=== PATIENT | male | born 1980 | race Caucasian/White ===

== ENCOUNTER → 2020-06-07 15:17 | Outpatient (CLI) | payer BC, SELFPAY ==
[2020-06-01 07:49] VITALS: BMI 33.0
--- NOTE | 2020-06-07 14:00 | VAS_PTH ---
PATIENT: EMIR DEJESUS LOC: [facility] U#:[id number] AGE/SX: 45/M ROOM: RE06/07/[address]: Dr. Lizandro Cowan MD : 1980 BED: DIS: SPEC #: [id number] RECD: 06/07/20 15:00 STATUS: MARCE RANI #: [id number] HEIDE: 06/07/20 14:[address]: Lizandro Cowan DEPT: SURGICAL PATHOLOGY RECD BY: Jana Powers ENTERED: 06/08/20 06:57 SP TYPE: VAS OTHR DR: Dr. Sd Roy MD Tissues: A - Vas deferens, NOS B - Vas deferens, NOS Procedures: Surgery Specimen Level II HEADER OPERATION: Bilateral partial vasectomy PRE-OP DIAGNOSIS: Sterilization TISSUE SUBMITTED: A - Right vas deferens, B - Left vas deferens MICROSCOPIC DIAGNOSIS A. Right vas deferens, segmental vasectomy: Complete cross-section of vas deferens with no pathologic change. B. Left vas deferens, segmental vasectomy: Complete cross-section of vas deferens with no pathologic change. AM:kristen 06/09/2020 MICROSCOPIC DESCRIPTION Slides are reviewed. GROSS DESCRIPTION A - Received is one container designated right vas deferens. The specimen consists of a tubular segment of barr soft tissue measuring 1.5 cm in length and 0.2 cm in diameter. The entire specimen is submitted in one cassette. It will be sectioned at the time of embedding. B - Received is one container designated left vas deferens. The specimen consists of a tubular segment of barr soft tissue measuring 1.7 cm in length and 0.2 cm in diameter. The entire specimen is submitted in one cassette. It will be sectioned at the time of embedding. / SJ:kristen 06/08/20 TC:4 CPT: 69042 x2
== END ==
PROVIDERS: PCP Family Medicine; Visit Provider Surgery
DX: Z30.2 Encounter for sterilization (principal)
CPT/HCPCS: 88302

== ENCOUNTER → 2020-07-17 12:12 | Outpatient (CLI) | payer BC, SELFPAY ==
[2020-06-01 07:49] VITALS: BMI 33.0
[2020-07-18 12:35] LABS: Semen Analysis Post Vas ABSENT
== END ==
PROVIDERS: PCP Family Medicine; Visit Provider Surgery
DX: Z30.2 Encounter for sterilization (principal)
CPT/HCPCS: 89321

== ENCOUNTER → 2020-08-07 12:37 | Outpatient (CLI) | payer BC, SELFPAY ==
[2020-06-01 07:49] VITALS: BMI 33.0
[2020-08-08 12:21] LABS: Semen Analysis Post Vas ABSENT
== END ==
PROVIDERS: PCP Family Medicine; Visit Provider Surgery
DX: Z30.2 Encounter for sterilization (principal)
CPT/HCPCS: 89321